=== PATIENT | male | born 1985 | race Hispanic/Latino ===

== ENCOUNTER 2022-04-03 14:56 | Emergency (ER) | payer OTHER ==
[2022-04-03] MEDS ORDERED: Diazepam 10 MG/2 ML SYRINGE ONE (15:54)
[2022-04-03] MEDS ORDERED: Ketorolac Tromethamine 30 MG/ML VIAL ONE (15:55)
[2022-04-03] MEDS ORDERED: Dexamethasone 10 MG/ML VIAL ONE (15:55)
[2022-04-03] MEDS ORDERED: Morphine 4 MG/ML VIAL ONE (17:25)
== END 2022-04-03 17:53 | disposition home or self-care (01) ==
LOC: ERS 14:56
DX: M54.50 Low back pain, unspecified (principal); M62.830 Muscle spasm of back
CPT/HCPCS: 96374; 96375; J1100; J1885; J2270; J3360